=== PATIENT | female | born 1945 | race Native Hawaiian/Other Pacific Islander ===

== ENCOUNTER → 2022-03-01 | Outpatient (CLI) | payer MEDICARE, OTHER ==
[~2022-03-01] VITALS: Ht 154.9 cm; Wt 56.5 kg
[2022-03-01 09:07] VITALS: BP 141/73
== END | disposition home or self-care (01) ==
LOC: SRCNTR 08:44
PROVIDERS: ATTEND Internal Medicine
DX: R06.00 Dyspnea, unspecified (principal)
CPT/HCPCS: G0463; Z7500

== ENCOUNTER → 2022-03-07 | Outpatient (CLI) | payer MEDICARE, OTHER | END | disposition home or self-care (01) | LOC: RADPV 10:29 | PROVIDERS: ATTEND Internal Medicine | DX: I07.1 Rheumatic tricuspid insufficiency (principal); I50.9 Heart failure, unspecified | CPT/HCPCS: 93306 ==

== ENCOUNTER → 2022-04-04 | Outpatient (CLI) | payer MEDICARE, OTHER ==
[~2022-04-04] VITALS: Ht 154.9 cm; Wt 54.0 kg
[2022-04-04 09:19] VITALS: BP 136/81
== END | disposition home or self-care (01) ==
LOC: SRCNTR 09:00
PROVIDERS: ATTEND Internal Medicine
DX: R06.00 Dyspnea, unspecified (principal)
CPT/HCPCS: G0463